=== PATIENT | female | born 1970 | race Caucasian/White ===

== ENCOUNTER 2017-02-17 06:46 | Day surgery (SDC) | payer BC ==
[~2017-02-17] VITALS: Ht 172.7 cm; Wt 81.4 kg
[2017-02-17] MEDS ORDERED: EPINEPHRINE TOPICAL SOLN 1 MG/ML, 30ML ONE (07:04)
[2017-02-17] MEDS ORDERED: EPINEPHRINE 1 MG/ML, 1ML ONE (07:04)
[2017-02-17] MEDS ORDERED: LIDOCAINE/PF 1%, 30ML ONE (07:04)
[2017-02-17] MEDS ORDERED: FLUORESCEIN OPHTHALMIC 1 MG STRIP ONE (07:04)
[2017-02-17] MEDS ORDERED: OXYMETAZOLINE NASAL SPRAY 0.05%, 15ML ONE (07:04)
[2017-02-17 07:15] VITALS: BP 138/90
[2017-02-17] MEDS ORDERED: LACTATED RINGERS 1,000 ML IV SCH (07:23)
[2017-02-17] MEDS ORDERED: MOTRIN PO (07:24)
[2017-02-17 07:25] VITALS: BP 138/90
[2017-02-17 07:52] LABS: HCG UR LOT HCG7030192
[2017-02-17] MEDS ORDERED: MIDAZOLAM 1 MG/ML, 2ML ONE ×2 (07:54→08:17)
[2017-02-17] MEDS ORDERED: SUFentanil 50 MCG/ML, 1ML ONE (07:54)
[2017-02-17 08:13] LABS: HCG UR OBC PASS
[2017-02-17] MEDS ORDERED: LIDOCAINE-MPF 2% ,5ML ONE (08:24)
[2017-02-17] MEDS ORDERED: PROPOFOL 10 MG/ML, 20ML ONE (08:24)
[2017-02-17] MEDS ORDERED: CEFAZOLIN 1,000 MG ONE ×2 (08:25)
[2017-02-17] MEDS ORDERED: ROCURONIUM 10 MG/ML,10ML ONE (08:32)
[2017-02-17] MEDS ORDERED: PHENYLEPHRINE 10 MG/ML ONE (08:32)
[2017-02-17] MEDS ORDERED: DEXAMETHASONE 4 MG/ML, 1ML ONE ×2 (08:39)
[2017-02-17] MEDS ORDERED: OXYcodone 5 MG/5 ML ORAL.SOL UDC PO PRN (09:00)
[2017-02-17] MEDS ORDERED: LORazepam 2 MG/ML, 1ML IVPush PRN (09:00)
[2017-02-17] MEDS ORDERED: MEPERIDINE/PF 25MG/0.5ML IVPush PRN (09:00)
[2017-02-17] MEDS ORDERED: HYDROmorphone 1 MG/ML, 1ML IV PRN (09:00)
[2017-02-17] MEDS ORDERED: LABETALOL 5MG/ML, 20ML IV PRN (09:00)
[2017-02-17] MEDS ORDERED: ACETAMINOPHEN 325 MG TABLET PO PRN (09:00)
[2017-02-17] MEDS ORDERED: PROMETHAZINE 25 MG/ML, 1ML IV PRN (09:00)
[2017-02-17] MEDS ORDERED: ALBUTEROL SULFATE 2.5 MG/3 ML NPPB PRN (09:00)
[2017-02-17] MEDS ORDERED: ONDANSETRON 2MG/ML, 2ML IVPush PRN (09:00)
[2017-02-17] MEDS ORDERED: hydrALAzine 20 MG/ML, 1ML IV PRN (09:00)
[2017-02-17] MEDS ORDERED: FENTANYL PF 100 MCG/2ML IV PRN (09:00)
[2017-02-17] MEDS ORDERED: ONDANSETRON 2MG/ML, 2ML ONE ×2 (09:31)
[2017-02-17] MEDS ORDERED: BACITRACIN OINT 500U/GM, 15 GM TP ONE (09:31)
[2017-02-17] MEDS ORDERED: GLYCOPYRROLATE 0.2MG/1ML, 5ML ONE (09:33)
[2017-02-17] MEDS ORDERED: NEOSTIGMINE 1 MG/ML, 10ML ONE (09:33)
[2017-02-17] MEDS ORDERED: HYDROcodone/APAP 5/325 TABLET ONE (12:19)
[2017-02-17] MEDS ORDERED: HYDROcodone/APAP 5/325 TABLET PO ONE (12:30)
== END 2017-02-17 12:25 ==
LOC: OUT 06:46
PROVIDERS: ATTEND Otolaryngology
DX: J34.2 Deviated nasal septum (principal); J34.89 Other specified disorders of nose and nasal sinuses; Z98.890 Other specified postprocedural states; F17.210 Nicotine dependence, cigarettes, uncomplicated
CPT/HCPCS: 30520; 31240; 81025; 88305; J0171; J0690; J1100; J2250; J2370; J2405; J2704; J2710; J3490; J7120